=== PATIENT | female | born 2000 | race Two or more races ===

== ENCOUNTER 2023-12-04 21:39 | Emergency (ER) | payer OTHER ==
[~2023-12-04] VITALS: Ht 160 cm; Wt 69.3 kg
[2023-12-04 21:51] VITALS: BP 112/77; PULSE 97; RESP 24; TEMP 97.8; O2SAT 100
[2023-12-04] MEDS: LORazepam 0.5 MG TAB PO ONE (22:04)
[2023-12-05] MEDS ORDERED: HYDR50CA2 PO (00:01)
== END 2023-12-05 00:29 | disposition home or self-care (01) ==
LOC: ER 21:39
DX: F41.0 Panic disorder [episodic paroxysmal anxiety] (principal); F17.210 Nicotine dependence, cigarettes, uncomplicated
CPT/HCPCS: 81025

== ENCOUNTER 2024-05-19 15:13 | Emergency (ER) | payer OTHER ==
[~2024-05-19] VITALS: Ht 160 cm; Wt 76.0 kg
[~2024-05-19 15:13] MED LIST: HYDR50CA2 PO
--- NOTE | 2024-05-19 16:08 | ED.PDOC ---
GI ASSESSMENT HPI Comments HPI: Poor Historian. 23-year-old female presents to emergency depart for one day history of nausea and vomiting nonbilious nonbloody and normal color diarrhea with the associated epigastric pain. She also complains of generalized body aches and weakness and subjective fever. No alleviating or precipitating factors. Past Medcial History: Anxiety Past Surgical History: Appendectomy REVIEW OF SYSTEMS: CONSTITUTIONAL: Denies acute: diaphoresis, chills, HEAD: Denies acute: headache, photophobia Eyes: Denies acute: Double vision, vision loss, eye pain, eye discharge. EARS: Denies acute: tinnitus, hearing loss, ear discharge, ear pain, THROAT: Denies acute: sore throat, swelling, difficulty swallowing , pain with swallowing, change in voice. NECK: Denies acute: neck pain, neck swelling, stiff neck. HEART: Denies acute : chest pain, palpitations, LUNGS: Denies acute: SOB, wheezing, cough, hemoptysis ABDOMEN: Denies acute: melena , hematemesis, hematochezia SKIN: Denies acute: rash, redness, lesions, itchiness. EXTREMITIES: Denies acute: calf pain, numbness, tingling, weakness, denies pain in extremity. Denies acute: Low back pain. Neuro: Denies acute: focal neurological deficit, motor or sensory focal neurological deficit, tremors, seizure like activity, confusion, dizziness, change in mental status, loss of bowel or bladder function, cauda equina like symptoms. : Denies acute: dysuria, hematuria, flank pain, increase in urinary frequency. PSYCH: Denies acute: hallucination, suicidal ideation, homicidal ideation. FEMALE: Denies acute: abnormal vaginal bleeding, foul odor, unusual discharge. PHYSICAL EXAM: General: Mild acute distress, awake and alert. Head: normocephalic, atraumatic. Neck: supple, trachea is midline, no swelling. Throat: Normal phonation. Eyes:, no erythema, no purulent discharge, no proptosis, no icterus. Heart: regular tachycardic, no significant murmur appreciated. Lungs: no apparent respiratory distress, Able to speak in full sentences. No wheezing, no rhonchi, no crackles. No stridors Clear to auscultation bilaterally. Abdomen: Epigastric tender to palpation, non distended, soft, no guarding, no rebound, + bowel sounds. Neuro: Awake, Alert, oriented to name, self, situation, follows commands GCS=15. Speech is normal. Skin: no petechia, no purpura, no cyanosis, non-pale, not jaundice. Lower extremities: --no - Pitting edema no deformity, no focal swelling, no calf TTP. Makes eye contact. moves all four extremities. Face: no apparent facial droop. Ambulating in the ED independently. Chief Complaint: Abdominal Pain Time Seen by MD: 15:36 Primary Care Provider: artur Reviewed Notes: Nurses Notes, Medications, Allergies Allergies: Coded Allergies: NO KNOWN ALLERGIES (Unverified , 12/04/23) Home Meds Active Scripts Hydroxyzine Pamoate (Hydroxyzine Pamoate) 50 Mg Cap, 1 CAP PO Q6HPRN PRN, #12 CAP 0 Refills Prov:JAMES GARCIA 12/05/23 Information Source: Patient Mode of Arrival: Ambulatory Past Medical History PAST MEDICAL HISTORY: Anxiety Surgical History: Denies all surgeries Family History Family History: Unknown Social History Smoker: Cigarettes, Less Than 1 Pack/Day Alcohol: Denies ETOH Use Drugs: Denies Drug Use Lives In: Home X-Ray, Labs, Meds, VS Vital Signs Date Time Temp Pulse Resp B/P (MAP) Pulse Ox O2 Delivery O2 Flow Rate FiO2 05/19/24 20:34 110 19 98 Room Air* 0 21 05/19/24 19:55 98.7 109 18 108/35 (59) 98 98.7 05/19/24 15:30 99.4 116 17 92/46 (61) 98 Lab Test 05/19/24 18:56 05/19/24 18:18 05/19/24 16:10 05/19/24 16:05 Range/Units Lactic Acid Level 1.4 2.3 *H 0.4-2.0 mmol/L Stool for White Cells Pending Urine Color Yellow Yellow Urine Clarity Turbid H Clear Urine pH 5.5 5.0-9.0 Urine Specific [place] 1.031 1.001-1.035 Urine Protein Trace H Negative Urine Ketones Negative Negative Urine Blood Negative Negative /uL Urine Nitrite Negative Negative Urine Bilirubin Negative Negative Urine Urobilinogen Normal Negative mg/dL Urine Leukocyte Esterase 1+ Negative /uL Urine RBC 1 0 - 4 /hpf Urine WBC 3 0 - 5 /hpf Urine Squamous Epithelial Cells Mod <5 /hpf Urine Bacteria None seen None Seen /hpf Urine Mucus Few None Seen Urine Glucose Normal Normal mg/dL Urine Test Negative Negative Urine Opiates Screen Neg NEGATIVE Urine Fentanyl Screen Neg NEGATIVE Urine Barbiturates Screen Neg NEGATIVE Urine Phencyclidine Screen Neg NEGATIVE Urine Amphetamines Screen Neg NEGATIVE Urine Benzodiazepines Screen Pos NEGATIVE Urine Cocaine Screen Neg NEGATIVE Urine Cannabinoids Screen Neg NEGATIVE Influenza Type A Antigen Negative Negative Influenza Type B Antigen Negative Negative SARS-CoV-2 Antigen (Rapid) Negative NEGATIVE Test 05/19/24 16:02 Range/Units White Blood Count 12.2 H 4.4-10.8 10^3/uL Red Blood Count 4.70 4.0-5.20 10^6/uL Hemoglobin 14.7 12.2-16.2 g/dL Hematocrit 44.0 36.0-46.0 % Mean Corpuscular Volume 93.6 80.0-100.0 fL Mean Corpuscular Hemoglobin 31.2 28.0-32.0 pg Mean Corpuscular Hemoglobin Concent 33.3 32.0-36.0 g/dL Red Cell Distribution Width 13.7 11.8-14.3 % Platelet Count 284 140-450 10^3/uL Mean Platelet Volume 8.5 6.9-10.8 fL Neutrophils (%) (Auto) 89.0 H 37.0-80.0 % Lymphocytes (%) (Auto) 6.1 L 10.0-50.0 % Monocytes (%) (Auto) 4.7 0.0-12.0 % Eosinophils (%) (Auto) 0.0 0.0-7.0 % Basophils (%) (Auto) 0.2 0.0-2.0 % Neutrophils # (Auto) 10.8 H 1.6-8.6 10 ^3/uL Lymphocytes # (Auto) 0.7 0.4-5.4 10 ^3/uL Monocytes # (Auto) 0.6 0-1.3 10 ^3/uL Eosinophils # (Auto) 0 0-0.8 10 ^3/uL Basophils # (Auto) 0 0-0.2 10 ^3/uL Nucleated Red Blood Cells 0.0 % Sodium Level 137 136-145 mmol/L Potassium Level 4.0 3.5-5.1 mmol/L Chloride Level 107 98-107 mmol/L Carbon Dioxide Level 22 20-31 mmol/L Anion Gap 8 5-15 Blood Urea Nitrogen 13 9-23 mg/dL Creatinine 0.70 0.550-1.02 mg/dL Glomerular Filtration Rate Calc 124 >90 mL/min BUN/Creatinine Ratio 18.6 10.0-20.0 Serum Glucose 104 74-106 mg/dL Calcium Level 8.7 8.7-10.4 mg/dL Total Bilirubin 0.6 0.2-1.0 mg/dL Aspartate Amino Transferase (AST) 30 13-40 U/L Alanine Aminotransferase (ALT) 54 H 7-40 U/L Alkaline Phosphatase 74 46-116 U/L Total Protein 6.7 5.7-8.2 g/dL Albumin 4.2 3.2-4.8 g/dL Lipase 22 12-53 U/L Current Medications Medications (Trade) Dose Ordered Sig/Becky Route Start Time Stop Time Status Last Admin Sodium Chloride 1,000 ml @ 1,000 mls/hr Q1H ONCE IV 05/19/24 16:15 05/19/24 17:14 DC 05/19/24 20:23 Ondansetron HCl (Zofran) 8 mg ONCE ONCE IV 05/19/24 16:15 05/19/24 16:25 DC 05/19/24 20:07 Pantoprazole Sodium (Protonix) 40 mg ONCE ONCE IV 05/19/24 17:15 05/19/24 17:49 DC 05/19/24 20:15 Lidocaine HCl (Xylocaine 2% Viscous) 10 ml ONCE ONCE PO 05/19/24 17:15 05/19/24 17:49 DC 05/19/24 20:18 [place] [id number] Ph: [phone] DIAGNOSTIC IMAGING Diagnostic Imaging Report : [id number] Signed PATIENT: ISIDRO ALEXANDER ACCT: [id number] UNIT: [id number] : 2000 LOC: ER ROOM / BED: / AGE / SEX: 23 / F ADM STATUS: REG ER SERVICE 1600 ORDERING PHYSICIAN: ALEXSANDRA SUAREZ DO PROCEDURE(s): CXRP - CHEST PORTABLE REASON: FEVER ORDER NUMBER(s): [id number], ACCESSION NUMBER(s): [id number] CHEST RADIOGRAPH Indication: FEVER Technique: Single frontal view of the chest was obtained Comparison: None FINDINGS: Lines and Tubes: None Lungs: No focal consolidation. Pleura: No effusion.No pneumothorax. Cardiomediastinal contours: Unremarkable Pulmonary vasculature: Within normal limits. Bones: No acute osseous abnormality. IMPRESSION: 1. No acute cardiopulmonary disease. HS:Y ATED BY: HUGO MARTIN MD DICTATED DATE/TIME: 05/19/241705 SIGNED BY: HUGO MARTIN MD SIGNED DATE/TIME: 05/19/241705 CC: Time of 1ST Reevaluation: 22:06 (I discussed with the patient imaging studies but she declined. Patient has been tolerating p.o. intake well here in the ED.) Reevaluation 1ST: Resolved Patient Education/Counseling: Diagnosis, Treatment Family Education/Counseling: No Family Present Departure 1 Departure Time of Disposition: 18:49 Impression: Primary Impression: Epigastric pain Additional Impressions: Nausea and vomiting Body aches Disposition: 01 HOME / SELF CARE / HOMELESS Condition: Stable Additional Instructions: Additional discharge instructions: You MUST follow-up with your primary care/family doctor in 1 to 2 days. If you are unable to see your primary care/family doctor, please return to our emergency room for re-assessment and re-evaluation in 1 to 2 days. Return to the emergency room here in our facility or to the nearest ER [facility] if your symptoms change or worsen. CONSULTATIONS: you MUST Follow-up for consultation as soon as possible with: -gastroenterology in 1-2 days. Please call for appointment. You MUST call the consultants office yourself to make an appointment. You may need to arrange that through your insurance and/or your primary/family doctor. If you are unable to see the campaign consultant in 1 to 2 days, you must return to our emergency room (or any other ER of your choice) for re-assessment and re- evaluation. Adequate fluid hydration. Avoid fatty greasy spicy food. Avoid caffeinated products. Avoid NSAIDs. Discharged With: Self Critical Care Note Critical Care Time?: No I personally scribed for ALEXSANDRA SUAREZ DO ([email or web address]) on 05/19/24 at 17:02. Electronically submitted by Isidro [email or web address]). I personally scribed for ALEXSANDRA SUAREZ DO ([email or web address]) on 05/19/24 at 21:18. Electronically submitted by Mandeep Velazquez [email or web address]). ALEXSANDRA SUAREZ DO May 19, 2024 16:08
[2024-05-19 16:26] LABS: Urine Bacteria None Seen /hpf (None Seen)
[2024-05-19 16:38] LABS: Basophils # (auto) 0 10 ^3/uL (0-0.2); Basophils % (auto) 0.2 % (0.0-2.0); Eosinophils # (auto) 0 10 ^3/uL (0-0.8); Hemoglobin 14.7 g/dL (12.2-16.2); Lymphocytes # (auto) 0.7 10 ^3/uL (0.4-5.4); Lymphocytes % (auto) 6.1 % (10.0-50.0); Mean Corpuscular Hemoglobin 31.2 pg (28.0-32.0); Mean Corpuscular Hgb Conc. 33.3 g/dL (32.0-36.0); Mean Corpuscular Volume 93.6 fL (80.0-100.0); Monocytes # (auto) 0.6 10 ^3/uL (0-1.3); Monocytes % (auto) 4.7 % (0.0-12.0); Neutrophils # (auto) 10.8 10 ^3/uL (1.6-8.6); Platelet Count (auto) 284 10^3/uL (140-450); Red Cell Distribution Width 13.7 % (11.8-14.3); White Blood Cell 12.2 10^3/uL (4.4-10.8)
[2024-05-19 16:42] LABS: COVID19 ANTIGEN SOFIA FIA NEGATIVE (NEGATIVE); Rapid Influenza A Negative (Negative); Rapid Influenza B Negative (Negative)
[2024-05-19 16:47] LABS: Urine Blood Negative /uL (Negative); Urine Clarity Turbid (Clear); Urine Color Yellow (Yellow); Urine Mucus FEW (None Seen); Urine Protein, UAD TRACE (Negative); Urine Specific Gravity 1.031 (1.001-1.035); Urine Squamous Epithelial Cell MOD /hpf (<5); Urine Urobilinogen Normal (Negative); Urine WBC 3 /hpf (0 - 5); Urine pH 5.5 (5.0-9.0)
[2024-05-19 16:51] LABS: Alkaline Phosphatase 74 U/L (46-116); Anion Gap 8 (5-15); BUN/Creatinine Ratio 18.6 (10.0-20.0); Blood Urea Nitrogen 13 mg/dL (9-23); Calcium 8.7 mg/dL (8.7-10.4); Carbon Dioxide 22 mmol/L (20-31); Chloride 107 mmol/L (98-107); Glucose 104 mg/dL (74-106); Lipase 22 U/L (12-53); Sodium 137 mmol/L (136-145)
[2024-05-19 16:52] LABS: Albumin 4.2 g/dL (3.2-4.8); Aspartate Aminotransferase 30 U/L (13-40); Bilirubin, Total 0.6 mg/dL (0.2-1.0); Total Protein 6.7 g/dL (5.7-8.2)
[2024-05-19 17:02] LABS: Alanine Aminotransferase 54 U/L (7-40)
--- NOTE | 2024-05-19 17:07 | DVH ---
CHEST RADIOGRAPH Indication: FEVER Technique: Single frontal view of the chest was obtained Comparison: None FINDINGS: Lines and Tubes: None Lungs: No focal consolidation. Pleura: No effusion.No pneumothorax. Cardiomediastinal contours: Unremarkable Pulmonary vasculature: Within normal limits. Bones: No acute osseous abnormality. IMPRESSION: 1. No acute cardiopulmonary disease. HS:Y
[2024-05-19 17:12] LABS: Lactic Acid w/Reflex 2.3 mmol/L (0.4-2.0)
[2024-05-19 19:43] LABS: Amphetamine Screen, Urine Neg (NEGATIVE); Benzodiazephine Screen, Urine Pos (NEGATIVE)
[2024-05-19 19:50] LABS: Barbiturate Scree,Urine Neg (NEGATIVE); Cannabinoid Screen, Urine Neg (NEGATIVE); Cocaine Screen, Urine Neg (NEGATIVE); Opiate Scree,Urine Neg (NEGATIVE); Phencyclidine Screen, Urine Neg (NEGATIVE)
[2024-05-19 19:55] VITALS: BP 108/35; TEMP 98.7
[2024-05-19] MEDS: ONDANSETRON HCL 4 MG/2 ML VIAL IV ONE (20:07)
[2024-05-19] MEDS: PANTOPRAZOLE 40 MG/10 ML VIAL INJ IV ONE (20:15)
[2024-05-19] MEDS: LIDOCAINE VISCOUS 2% 15ML UD PO ONE (20:18)
[2024-05-19] MEDS: SODIUM CHLORIDE 0.9% 1,000 ML IV ONE (20:23)
[2024-05-19 20:34] VITALS: PULSE 110; RESP 19; O2SAT 98
== END 2024-05-19 22:37 | disposition home or self-care (01) ==
LOC: ER 15:13
DX: R10.13 Epigastric pain (principal); R11.2 Nausea with vomiting, unspecified; F41.9 Anxiety disorder, unspecified; R50.9 Fever, unspecified; F17.210 Nicotine dependence, cigarettes, uncomplicated; Z20.822 Contact with and (suspected) exposure to COVID-19; R19.7 Diarrhea, unspecified
CPT/HCPCS: 36415; 71045; 80053; 80307; 81001; 81025; 83605; 83690; 85025; 85048; 87040; 87045; 87177; 87426; 87427; 87804; 96361; 96374; 96375; 99284; J2405; J2470